=== PATIENT | male | born 1990 | race Caucasian/White ===

== ENCOUNTER 2017-07-13 10:20 | Emergency (ER) | payer OTHER ==
[~2017-07-13] VITALS: Ht 180.3 cm; Wt 61.2 kg
[2017-07-13] MEDS ORDERED: NORCO 5-325 TA1 EACH PO (11:48)
[2017-07-13] MEDS ORDERED: CRUTCHES MISCELL (11:51)
[2017-07-13 12:17] VITALS: BP 122/74
== END 2017-07-13 12:19 | disposition home or self-care (01) ==
LOC: ER 10:20
DX: S82.54XA Nondisplaced fracture of medial malleolus of right tibia, initial encounter for closed fracture (principal); F17.210 Nicotine dependence, cigarettes, uncomplicated; F10.99 Alcohol use, unspecified with unspecified alcohol-induced disorder; Z88.0 Allergy status to penicillin; W22.8XXA Striking against or struck by other objects, initial encounter; Y93.89 Activity, other specified; Y92.89 Other specified places as the place of occurrence of the external cause; Y99.8 Other external cause status